=== PATIENT | female | born 1990 | race Caucasian/White ===

== ENCOUNTER 2019-12-17 15:59 | Outpatient (CLI) | payer OTHER, SELFPAY ==
--- NOTE | ~2019-12-17 | US_ITS ---
EXAMINATION: US OB <= 14 weeks fetus DATE: 12/17/2019 16:48 INDICATION: Gestational dating. TECHNIQUE: Real-time transabdominal obstetric ultrasound. FINDINGS: No prior studies for comparison. The uterus measures 11.8 x 8.1 x 6.7 cm. There is an intrauterine gestational sac, with pole id entified. The crown rump length measures 2.33 cm, which correlates with a estimated gestational age of 9 weeks 0 days. heart tones are identified measuring 165 bpm. There is a subchorionic hemo rrhage measuring 2 x 1.7 x 0.9 cm. There is a corpus luteal cyst of the left ovary measuring 3 x 2.8 x 2.6 cm. IMPRESSION: 1. SL IUP with an EGA of 9 weeks, 0 days (EDC by current ultrasound of 07/21/2020). 2: Small subchorionic hemorrhage measuring 2 x 1.7 x 0.9 cm. 3: 3 cm corpus luteal cyst of the left ovary. Reviewed, dictated and finalized at location A. RY DRILLER HELPER IMPRESSION: 1. SL IUP with an EGA of 9 weeks, 0 days (EDC by current ultrasound of 0). 2: Small subchorionic hemorrhage measuring 2 x 1.7 x 0.9 cm. 3: 3 cm corpus luteal cyst of the left ovary.
== END 2019-12-17 16:00 | disposition home or self-care (01) ==
LOC: ANHIMG 16:00
PROVIDERS: Visit Provider Student in an Organized Health Care Education/Training Program
DX: O46.91 Antepartum hemorrhage, unspecified, first trimester (principal); Z3A.09 9 weeks gestation of pregnancy
CPT/HCPCS: 76801

== ENCOUNTER 2020-02-06 10:32 | Outpatient (CLI) | payer OTHER, SELFPAY ==
[2020-02-06 11:16] LABS: Basophils Percent Auto 0.3 % (0.2-1.2); Eosinophils Absolute Auto 0.2 K/mm3 (0-0.3); Eosinophils Percent Auto 1.6 % (0-4.4); Hematocrit 31.5 % (37.0-47.0); Hemoglobin 10.5 g/dL (12.0-15.0); Immature Granulocyte Absolute 0.04 K/mm3 (0.00-0.031); Immature Granulocyte Percent A 0.4 % (0-0.5); Lymphocytes Absolute Auto 1.98 K/mm3 (0.9-3.2); Lymphocytes Percent Auto 20.9 % (18.3-44.2); Mean Corpuscular HGB Conc 33.3 g/dl (32-36); Mean Corpuscular Hemoglobin 28.2 pg (26-34); Mean Corpuscular Volume 84.7 fl (80-100); Mean Platelet Volume 9.9 fl (7.4-10.4); Monocytes Absolute Auto 0.6 K/mm3 (0.1-0.6); Monocytes Percent Auto 6.3 % (2.6-8.5); Neutrophils Absolute Auto 6.7 K/mm3 (1.3-6.7); Neutrophils Percent Auto 70.5 % (45.5-73.1); Platelet Count Result 186 k/mm3 (150-375); Red Blood Count 3.72 M/mm3 (4.2-5.4); Red Cell Distribution Width 14.6 % (11.5-14.5); White Blood Count 9.5 K/mm3 (4.5-10.0)
[2020-02-06 11:30] LABS: Add Urine Microscopic? YES; Appearance Urine Clear (Clear); Bacteria Urine Trace /hpf; Bilirubin Urine Negative (Negative); Blood Urine 1+ (Negative); Color Urine Straw (Yellow); Glucose Urine UA Negative (Negative); Ketones Urine Negative (Negative); Leukocyte Esterase Ur Negative LEU/UL (NEGATIVE); Nitrate Urine Negative (Negative); Protein Urine Negative (Negative); RBC Urine 0-2 /hpf (0-2); Specific Grav Ur 1.011 (1.001-1.035); Squamous Epithelial Cell Urine Occasional /hpf (Few); Urobilinogen Urine Negative mg/dL (<2.0); WBC Urine 0-3 /hpf (0-3)
[2020-02-06 12:02] LABS: Hepatitis B Surface Antigen Negative (Negative); Rubella IgG Antibody 26.4 IU/ML
[2020-02-06 12:14] LABS: HIV 1/2 Ab P24 Ag Result Negative (Negative); Hepatitis C Virus Antibody Negative (Negative)
[2020-02-06 12:20] LABS: Vitamin D 25 Hydroxy 35.4 ng/mL
[2020-02-06 13:13] LABS: HIV 1/2 Ab P24 Ag 0.06; Hepatitis B Surface Antigen 0.04 S/C; Hepatitis C Virus Antibody 0.04 S/C
[2020-02-08 09:26] LABS: Rapid Plasma Reagin Non-Reactive (NonReactive)
[2020-02-09 13:36] LABS: Toxoplasma IgG Antibody <7.20 IU/mL (<7.20)
[2020-02-10 18:43] LABS: Hematocrit 34.6 % (35.0-45.0); Hemoglobin 11.3 g/dL (11.7-15.5); MCH 28.5 pg (27.0-33.0); MCV 87.2 FL (80.0-100.0); RDW 16.4 % (11.0-15.0); Red Blood Cell Count 3.97 Mill/uL (3.80-5.10)
== END 2020-02-06 10:33 | disposition home or self-care (01) ==
PROVIDERS: Visit Provider Student in an Organized Health Care Education/Training Program
DX: Z34.81 Encounter for supervision of other normal pregnancy, first trimester (principal); Z3A.00 Weeks of gestation of pregnancy not specified
CPT/HCPCS: 36415; 81001; 82306; 83021; 84443; 85025; 86592; 86703; 86762; 86777; 86787; 86803; 86900; 86901; 87086; 87088; 87340; G0432

== ENCOUNTER 2020-05-03 15:49 | Outpatient (CLI) | payer OTHER, SELFPAY ==
[2020-05-03 17:26] LABS: Basophils Percent Auto 0.4 % (0.2-1.2); Eosinophils Absolute Auto 0.2 K/mm3 (0-0.3); Eosinophils Percent Auto 1.7 % (0-4.4); Hematocrit 30.9 % (37.0-47.0); Hemoglobin 9.9 g/dL (12.0-15.0); Immature Granulocyte Absolute 0.06 K/mm3 (0.00-0.031); Immature Granulocyte Percent A 0.6 % (0-0.5); Lymphocytes Absolute Auto 2.35 K/mm3 (0.9-3.2); Lymphocytes Percent Auto 24.3 % (18.3-44.2); Mean Corpuscular Hemoglobin 26.3 pg (26-34); Mean Platelet Volume 10.5 fl (7.4-10.4); Monocytes Percent Auto 9.9 % (2.6-8.5); Neutrophils Absolute Auto 6.1 K/mm3 (1.3-6.7); Neutrophils Percent Auto 63.1 % (45.5-73.1); Platelet Count Result 187 k/mm3 (150-375); Red Blood Count 3.77 M/mm3 (4.2-5.4); Red Cell Distribution Width 13.2 % (11.5-14.5); White Blood Count 9.7 K/mm3 (4.5-10.0)
[2020-05-03 17:37] LABS: Glucose 1 Hour PP 50gm Dose 108 mg/dL
== END 2020-05-03 15:50 | disposition home or self-care (01) ==
PROVIDERS: Visit Provider Student in an Organized Health Care Education/Training Program
DX: Z34.82 Encounter for supervision of other normal pregnancy, second trimester (principal); Z3A.00 Weeks of gestation of pregnancy not specified
CPT/HCPCS: 36415; 82947; 85025; 86850; 86900; 86901

== ENCOUNTER 2020-05-29 09:08 | Observation (INO) | payer OTHER, SELFPAY ==
--- NOTE | ~2020-05-29 | US_ITS ---
EXAMINATION: US OB limited EXAM DATE: 05/29/2020 10:52 INDICATION: , vaginal bleeding. Spotting last night. 3rd trimester. TECHNIQUE: Pelvic obstetrical transabdominal sonogram was performed by a technologist. There are mu ltiple grayscale and Doppler images available for interpretation. Comparison is made to prior examina tion from 12/19/2019. FINDINGS: There is a single fetus identified in vertex presentation with a heart rate of 127 beats pe r minute. The placenta is located in the posterior position. There is no sonographic evidence of ret roplacental hemorrhage identified. The amniotic fluid index is 15.0 centimeters, which is normal. IMPRESSION: 1. Single fetus in vertex presentation with heart rate 127 beats per minute. 2. Normal KELLI 15 cm. Reviewed, dictated and finalized at location A.
[2020-05-29 10:26] LABS: Basophils Percent Auto 0.3 % (0.2-1.2); Eosinophils Absolute Auto 0.2 K/mm3 (0-0.3); Eosinophils Percent Auto 1.6 % (0-4.4); Hematocrit 33.3 % (37.0-47.0); Hemoglobin 10.9 g/dL (12.0-15.0); Immature Granulocyte Absolute 0.04 K/mm3 (0.00-0.031); Immature Granulocyte Percent A 0.4 % (0-0.5); Lymphocytes Absolute Auto 1.97 K/mm3 (0.9-3.2); Lymphocytes Percent Auto 21.1 % (18.3-44.2); Mean Corpuscular HGB Conc 32.7 g/dl (32-36); Mean Corpuscular Volume 82.4 fl (80-100); Mean Platelet Volume 10.4 fl (7.4-10.4); Monocytes Absolute Auto 0.8 K/mm3 (0.1-0.6); Neutrophils Absolute Auto 6.4 K/mm3 (1.3-6.7); Neutrophils Percent Auto 68.6 % (45.5-73.1); Platelet Count Result 162 k/mm3 (150-375); Red Blood Count 4.04 M/mm3 (4.2-5.4); Red Cell Distribution Width 17.2 % (11.5-14.5); White Blood Count 9.3 K/mm3 (4.5-10.0)
[2020-05-29 10:28] VITALS: BMI 28.5
--- NOTE | 2020-05-29 10:28 | OBADM ---
This patient, Sonia Davies, admitted to the OB room Labor/Delivery/Recovery 118 for observation. Patient/family oriented to hospital policies and general routines including ID bracelet, bed and alarms, visiting hours, pain management, procedures, bathroom and other care routines, personal items, smoking policy, room service/diet, and visiting hours. Patient/Family are encouraged to report perceived risks to care and to ask questions if they do not understand what they are told or what they should do.
[2020-05-29 10:29] VITALS: BP 108/65; PULSE 76
[2020-05-29 10:31] VITALS: BP 104/63; PULSE 80
[2020-05-29 10:38] LABS: Prothrombin Time 13.2 Seconds (11.1-14.7)
[2020-05-29 10:39] LABS: Partial Thromboplastin Time 29.1 SECONDS (22.3-36.8)
[2020-05-29 10:42] LABS: D Dimer 0.92 ug/mL (<0.48)
[2020-05-29 10:44] LABS: Fibrinogen 308 mg/dl (215-510)
[2020-05-29 10:45] LABS: Fetal Fibronectin Negative
--- NOTE | 2020-06-29 12:39 | P.PNOB_ITS ---
OB - Triage/Final Diagnosis Evaluation Laboratory results: Laboratory Tests 05/29/20 05/29/20 05/29/20 10:13 10:21 10:21 WBC 9.3 RBC 4.04 L Hgb 10.9 L Hct 33.3 L MCV 82.4 MCH 27.0 MCHC 32.7 RDW 17.2 H Plt Count 162 MPV 10.4 Immature Gran % (Auto) 0.4 Neut % (Auto) 68.6 Lymph % (Auto) 21.1 [place] % (Auto) 8.0 Eos % (Auto) 1.6 Baso % (Auto) 0.3 Lymph # (Auto) 1.97 [place] # (Auto) 0.8 H Eos # (Auto) 0.2 Baso # (Auto) 0.0 Abs Immat Gran (auto) 0.04 H Absolute Neuts (auto) 6.4 Absolute Nucleated RBC 0.0 Nucleated RBC % 0.0 PT 13.2 INR 1.0 APTT 29.1 Fibrinogen 308 D-Dimer 0.92 H Fibronectin Negative Final Diagnosis (1) contractions: Code(s): O47.9 - False labor, unspecified Status: Acute
== END 2020-05-29 11:30 | disposition home or self-care (01) ==
PROVIDERS: Admitting Provider Obstetrics & Gynecology; Visit Provider Obstetrics & Gynecology
DX: O47.03 False labor before 37 completed weeks of gestation, third trimester (principal); Z3A.32 32 weeks gestation of pregnancy
CPT/HCPCS: 36415; 76815; 82731; 85025; 85380; 85384; 85610; 85730; G0378; G0379

== ENCOUNTER 2020-06-25 09:28 | Outpatient (RCR) | payer OTHER, SELFPAY ==
[2020-05-28 17:00] VITALS: BP 109/61; PULSE 82
[2020-06-04 16:21] VITALS: BP 109/61; PULSE 111
[2020-06-07 15:42] VITALS: BP 107/60; PULSE 93
[2020-06-11 08:47] VITALS: BP 109/65; PULSE 88
[2020-06-18 09:25] VITALS: BP 112/71; PULSE 87
--- NOTE | 2020-06-18 10:30 | PC.NURSE ---
BPP 06/04.
--- NOTE | ~2020-06-25 | US_ITS ---
EXAMINATION: US OB BPP wo non-stress DATE: 06/11/2020 08:50 INDICATION: Biophysical profile. Third trimester. TECHNIQUE: Real-time pelvic ultrasound was performed. COMPARISON: Ultrasound 05/29/2020, 12/17/2019 FINDINGS: There is a single living fetus in vertex presentation. The placenta is posterior. heart rate i s 133 beats per minute (bpm). Biophysical profile performed by the technologist: breathing (30 sec sustained breathing in 30 minutes): 2 out of 2 movement (3 gross body movements in 30 minutes): 2 out of 2 tone (one episode of rsiugdh-ikexucqwg-mkaiiuz limb movement): 2 out of 2 Amniotic fluid pocket (2 cm): 2 out of 2 Total score: 8 out of 8 IMPRESSION: 1. Single living fetus in vertex presentation. 2. Biophysical profile 8 out of 8. Reviewed, dictated and finalized at location A.
--- NOTE | ~2020-06-25 | US_ITS ---
EXAMINATION: US OB BPP wo non-stress DATE: 06/25/2020 10:38 INDICATION: Large blood vessel on placenta. NST. Third trimester. TECHNIQUE: Real-time pelvic ultrasound was performed. The interpreting radiologist was not present fo r the study. COMPARISON: 06/18/2020 FINDINGS: There is a single living fetus in vertex presentation. The placenta is posterior. heart rate i s 161 beats per minute (bpm). Biophysical profile performed by the technologist: breathing (30 sec sustained breathing in 30 minutes): 2 out of 2 movement (3 gross body movements in 30 minutes): 2 out of 2 tone (one episode of ogrscsw-wcnqirtio-jhyutlk limb movement): 2 out of 2 Amniotic fluid pocket (2 cm): 2 out of 2 Total score: 8 out of 8 IMPRESSION: 1. Single living fetus in vertex presentation with heart rate of 161 bpm. 2. Biophysical profile 8 out of 8. Reviewed, dictated and finalized at location A.
--- NOTE | ~2020-06-25 | US_ITS ---
EXAMINATION: US OB BPP wo non-stress DATE: 06/18/2020 10:21 INDICATION: Irregular blood vessel in cord, third trimester TECHNIQUE: Real-time pelvic ultrasound was performed. The interpreting radiologist was not present fo r the study. COMPARISON: None. FINDINGS: There is a single living fetus in vertex presentation. The placenta is posterior. heart rate is 120 beats per minute (bpm). Biophysical profile performed by the technologist: breathing (30 sec sustained breathing in 30 minutes): 2 out of 2 movement (3 gross body movements in 30 minutes): 2 out of 2 tone (one episode of isjaigu-hvjtfmzvn-lfgpeew limb movement): 2 out of 2 Amniotic fluid pocket (2 cm): 2 out of 2 Total score: 8 out of 8 IMPRESSION: 1. Single living fetus in vertex presentation. 2. Biophysical profile 8 out of 8. Reviewed, dictated and finalized at location A.
[2020-06-25 10:02] LABS: Basophils Percent Auto 0.4 % (0.2-1.2); Eosinophils Absolute Auto 0.2 K/mm3 (0-0.3); Eosinophils Percent Auto 1.5 % (0-4.4); Hematocrit 33.6 % (37.0-47.0); Hemoglobin 10.9 g/dL (12.0-15.0); Immature Granulocyte Absolute 0.09 K/mm3 (0.00-0.031); Immature Granulocyte Percent A 0.9 % (0-0.5); Lymphocytes Absolute Auto 1.77 K/mm3 (0.9-3.2); Lymphocytes Percent Auto 17.3 % (18.3-44.2); Mean Corpuscular HGB Conc 32.4 g/dl (32-36); Mean Corpuscular Hemoglobin 27.4 pg (26-34); Mean Corpuscular Volume 84.4 fl (80-100); Mean Platelet Volume 11.1 fl (7.4-10.4); Monocytes Percent Auto 9.3 % (2.6-8.5); Neutrophils Absolute Auto 7.2 K/mm3 (1.3-6.7); Neutrophils Percent Auto 70.6 % (45.5-73.1); Platelet Count Result 158 k/mm3 (150-375); Red Blood Count 3.98 M/mm3 (4.2-5.4); Red Cell Distribution Width 17.2 % (11.5-14.5); White Blood Count 10.2 K/mm3 (4.5-10.0)
[2020-06-25 10:12] VITALS: BP 113/64; PULSE 94
[2020-06-25 10:57] LABS: HIV 1/2 Ab P24 Ag Result Negative (Negative)
[2020-06-27 11:33] LABS: Rapid Plasma Reagin Non-Reactive (NonReactive)
== END 2020-07-05 07:46 | disposition home or self-care (01) ==
LOC: ANHOBOP 09:28
PROVIDERS: Visit Provider Student in an Organized Health Care Education/Training Program
DX: O36.63X0 Maternal care for excessive fetal growth, third trimester, not applicable or unspecified (principal); Z11.4 Encounter for screening for human immunodeficiency virus [HIV]; Z3A.32 32 weeks gestation of pregnancy; Z3A.33 33 weeks gestation of pregnancy; Z3A.34 34 weeks gestation of pregnancy; Z3A.35 35 weeks gestation of pregnancy; Z3A.36 36 weeks gestation of pregnancy
CPT/HCPCS: 36415; 59025; 76819; 85025; 86592; 86703; G0432

== ENCOUNTER 2020-07-01 04:56 | Inpatient (IN) | payer OTHER, SELFPAY ==
[2020-07-01] VITALS (106 sets, daily range): BP systolic 89–135; BP diastolic 42–112; PULSE 58–124; TEMP 36.4–37.2; O2SAT 93–100; BMI 31.2
--- NOTE | 2020-07-01 05:24 | LDADM ---
This patient, Sonia Davies, was admitted to Labor/Delivery/Recovery 106 on 07/01/20 at 04:56. Plans for labor, pain management and were discussed with patient. Patient/family oriented to hospital policies and general routines including ID bracelet, bed and alarms, visiting hours, pain management, procedures, bathroom and other care routines, personal items, smoking policy, room service/diet and guest tray routines, security routines, and visiting hours. Patient/Family are encouraged to report perceived risks to care and to ask questions if they do not understand what they are told or what they should do. See OBIX for further documentation.
[2020-07-01 05:33] LABS: Basophils Percent Auto 0.2 % (0.2-1.2); Eosinophils Absolute Auto 0.1 K/mm3 (0-0.3); Eosinophils Percent Auto 1.2 % (0-4.4); Hemoglobin 11.4 g/dL (12.0-15.0); Immature Granulocyte Absolute 0.07 K/mm3 (0.00-0.031); Immature Granulocyte Percent A 0.7 % (0-0.5); Lymphocytes Absolute Auto 2.29 K/mm3 (0.9-3.2); Mean Corpuscular HGB Conc 32.6 g/dl (32-36); Mean Corpuscular Hemoglobin 27.5 pg (26-34); Mean Corpuscular Volume 84.5 fl (80-100); Mean Platelet Volume 10.7 fl (7.4-10.4); Monocytes Absolute Auto 0.8 K/mm3 (0.1-0.6); Monocytes Percent Auto 7.6 % (2.6-8.5); Neutrophils Absolute Auto 7.1 K/mm3 (1.3-6.7); Neutrophils Percent Auto 68.3 % (45.5-73.1); Platelet Count Result 157 k/mm3 (150-375); Red Blood Count 4.14 M/mm3 (4.2-5.4); Red Cell Distribution Width 16.9 % (11.5-14.5); White Blood Count 10.4 K/mm3 (4.5-10.0)
[2020-07-01] MEDS: DINOPROSTONE 10 MG VAG INSERT VAGINAL (05:37)
[2020-07-01 07:16] LABS: Rapid Plasma Reagin Non-Reactive (NonReactive)
--- NOTE | 2020-07-01 10:31 | PM.IMHP ---
H&P: HPI History of Present Illness Date/Time: 07/01/20 10:31 Patient is a 30yo LMP 10/15/19 currently 37w gestation. Patient is dated by LMP consistent with an ultrasound on 12/17/19 at 9w gestation. She presents to L&D for scheduled IOL secondary to an umbilical vein varix that was diagnosed at approx. 33w gestation on US. Patient had NIPT done earlier during for a thickened NT that was negative. She has been monitored with serial surveillance and all testing has been within normal limits. Patient reports feeling well today. Denies any vaginal bleeding or leakage of fluid. Reports occasional contractions and good movement. Chief complaint: IOL Narrative: Sonia Davies is a 30 year old female Review of Systems Constitutional: Constitutional: Reports as per HPI and Reports no additional constitutional complaints Eyes: Eyes: Reports as per HPI and Reports no additional eye complaints ENT: Reports system reviewed and no additional complaints, except as documented and Reports as per HPI Cardiovascular: Cardiovascular: Reports as per HPI and Reports no additional cardiovascular complaints Respiratory: Respiratory: Reports as per HPI and Reports no additional respiratory complaints Gastrointestinal: Gastrointestinal: Reports as per HPI, Reports no additional gastrointestinal complaints, Denies abdominal pain, Denies nausea and Denies vomiting Genitourinary: Genitourinary: Reports no additional female genitourinary complaints and Reports as per HPI Musculoskeletal: Musculoskeletal: Reports no additional musculoskeletal complaints and Reports as per HPI Integumentary/Breasts: Skin/Breast: Reports system reviewed and no additional complaints, except as docu and Reports as per HPI Neurologic: Reports system reviewed and no additional complaints, except as documented and Reports as per HPI Psychiatric: Psychiatric: Reports no additional psychiatric complaints and Reports as per HPI PMFSH Past Medical History Medical History Asthma Hearing impaired Hernia Vaginal delivery Surgical History Surgical History History of hernia repair Family History Family History Grandparent Family history of cardiovascular disease Family history of Alzheimer's disease Family history of emphysema Carcinoma of colon Mother Hypertension Sibling Family history of attention deficit hyperactivity disorder (ADHD) Social History Social History Smoking status: Never smoker Alcohol intake: former Substance use: never Gender identity (if verbalized by the patient): Female Sexual Orientation (if Verbalized by the Patient): Straight or Heterosexual Spiritual care concerns: No Meds Home Medications and Allergies Home Medications Medication Instructions Recorded Confirmed Type albuterol sulfate 90 mcg/actuation 1 inhalation INHALATION Q4-6H PRN 12/03/19 History breath activated powder inhaler fluticasone propionate 44 1 inhalation INHALATION ONCE 12/03/19 History mcg/actuation HFA aerosol inhaler vit 123-iron 28 mg-folic 1 cap PO DAILY 12/31/19 History acid 800 bim-bqdir-2e 235 mg capsule gozwxkhfib-obrghspijwxln-zcltwioz 1 cap PO Q8H PRN #10 cap 02/15/20 02/15/20 Rx 50 mg-300 mg-40 mg capsule ferrous sulfate 325 mg (65 mg 325 mg PO DAILY #90 tablet 05/05/20 Rx iron) tablet Allergies Allergy/AdvReac Type Severity Reaction Status Date / Time No Known Allergies Allergy Verified 06/30/20 09:28 Vital Signs Vital Signs - 24 hr 07/01/20 05:30 07/01/20 06:00 07/01/20 06:30 Pulse Rate 122 H 104 H 101 H Blood Pressure 116/71 114/66 115/66 07/01/20 07:00 07/01/20 07:30 Pulse Rate 109 H 97 Blood Pressure 112/75 112/69 Exam Const
--- NOTE | 2020-07-01 12:36 | WPDANESEPP ---
Anes - Eval Pre Procedure Procedure: labor epidural Date/Time: 07/01/20 12:36 Pre Op Diagnosis: IOL Patient Data Age: 30 Gender: F Height: 1.6 m Weight: 80 kg Last Vital Signs Pulse 81 07/01/20 11:51 BP 115/71 07/01/20 11:51 Allergies Allergy/AdvReac Type Severity Reaction Status Date / Time No Known Allergies Allergy Verified 06/30/20 09:28 Home Medications Medication Instructions Recorded Confirmed Type albuterol sulfate 90 mcg/actuation 1 inhalation INHALATION Q4-6H PRN 12/03/19 History breath activated powder inhaler fluticasone propionate 44 1 inhalation INHALATION ONCE 12/03/19 History mcg/actuation HFA aerosol inhaler vit 123-iron 28 mg-folic 1 cap PO DAILY 12/31/19 History acid 800 uer-jmavt-8w 235 mg capsule xlugomrune-ibvtgzowexnol-fnkygwgp 1 cap PO Q8H PRN #10 cap 02/15/20 02/15/20 Rx 50 mg-300 mg-40 mg capsule ferrous sulfate 325 mg (65 mg 325 mg PO DAILY #90 tablet 05/05/20 Rx iron) tablet Laboratory Tests 07/01/20 07/01/20 07/01/20 05:25 05:25 05:25 WBC 10.4 K/mm3 H K/mm3 (4.5-10.0) RBC 4.14 M/mm3 L M/mm3 (4.2-5.4) Hgb 11.4 g/dL L g/dL (12.0-15.0) Hct 35.0 % L % (37.0-47.0) MCV 84.5 fl fl (80-100) MCH 27.5 pg pg (26-34) MCHC 32.6 g/dl g/dl (32-36) RDW 16.9 % H % (11.5-14.5) Plt Count 157 k/mm3 k/mm3 (150-375) MPV 10.7 fl H fl (7.4-10.4) Immature Gran % (Auto) 0.7 % H % (0-0.5) Neut % (Auto) 68.3 % % (45.5-73.1) Lymph % (Auto) 22.0 % % (18.3-44.2) [place] % (Auto) 7.6 % % (2.6-8.5) Eos % (Auto) 1.2 % % (0-4.4) Baso % (Auto) 0.2 % % (0.2-1.2) Lymph # (Auto) 2.29 K/mm3 K/mm3 (0.9-3.2) [place] # (Auto) 0.8 K/mm3 H K/mm3 (0.1-0.6) Eos # (Auto) 0.1 K/mm3 K/mm3 (0-0.3) Baso # (Auto) 0.0 K/mm3 K/mm3 (0.0-0.1) Abs Immat Gran (auto) 0.07 K/mm3 H K/mm3 (0.00-0.031) Absolute Neuts (auto) 7.1 K/mm3 H K/mm3 (1.3-6.7) Absolute Nucleated RBC 0.0 K/mm3 K/mm3 (0.0-0.012) Nucleated RBC % 0.0 % % (0.0-0.2) RPR Non-reactive (NonReactive) Blood Type O Positive Antibody Screen Negative Patient hx anesthesia problems: none Family hx anesthesia problems: none PMFSH Past Medical History Medical History Asthma Hearing impaired Hernia Vaginal delivery Surgical History Surgical History History of hernia repair Family History Family History Grandparent Family history of cardiovascular disease Family history of Alzheimer's disease Family history of emphysema Carcinoma of colon Mother Hypertension Sibling Family history of attention deficit hyperactivity disorder (ADHD) Social History Social History Smoking status: Never smoker Alcohol intake: former Substance use: never Gender identity (if verbalized by the patient): Female Sexual Orientation (if Verbalized by the Patient): Straight or Heterosexual Spiritual care concerns: No Exam Day of Procedure 07/01/20 12:36 Patient weight: obese Heart: regular rate and rhythm Lungs: normal air movement Airway: Mallampati scale class II Neurological: alert and oriented
[2020-07-01] MEDS: LACTATED RINGERS 1,000 ML 125 ML IV CONT ×3 (17:42→19:43)
--- NOTE | 2020-07-01 18:03 | PM.OBPNVD ---
OB - PN: Subj Subjective Date/time seen: 07/01/20 18:03 Pt doing well. Cervidil recently removed. Reports increase in contraction intensity. SVE /-2. AROM performed, clear fluid. EFM Category 1. [place] irregular ctx. Continue IOL. Will begin pitocin. Continuous EFM and toco. May have epidural if requested. OB - PN: Obj Data Labs CBC & Chem 7: 07/01/20 05:25 Labs: Laboratory Results - last 24 hr 07/01/20 07/01/20 07/01/20 05:25 05:25 05:25 WBC 10.4 H RBC 4.14 L Hgb 11.4 L Hct 35.0 L MCV 84.5 MCH 27.5 MCHC 32.6 RDW 16.9 H Plt Count 157 MPV 10.7 H Immature Gran % (Auto) 0.7 H Neut % (Auto) 68.3 Lymph % (Auto) 22.0 [place] % (Auto) 7.6 Eos % (Auto) 1.2 Baso % (Auto) 0.2 Lymph # (Auto) 2.29 [place] # (Auto) 0.8 H Eos # (Auto) 0.1 Baso # (Auto) 0.0 Abs Immat Gran (auto) 0.07 H Absolute Neuts (auto) 7.1 H Absolute Nucleated RBC 0.0 Nucleated RBC % 0.0 RPR Non-reactive Blood Type O Positive Antibody Screen Negative OB - PN A/P Time Spent With Patient Time: Total time spent is greater than 50% in coordination of care (as documented) at patient's floor/unit and/or counseling patient:
[2020-07-01] MEDS: SODIUM CHLORIDE 0.9% IV 300 ML 600 ML I-UTERINE (22:49)
[2020-07-01] MEDS: OXYTOCIN 30 UNITS/NS 500 ML 30 UNITS/500 ML BAG IV CONT (23:20)
[2020-07-02] VITALS (111 sets, daily range): BP systolic 91–125; BP diastolic 46–86; PULSE 56–154; RESP 12–16; TEMP 36.4–36.9; O2SAT 96–100
[2020-07-02] MEDS: LACTATED RINGERS 1,000 ML 125 ML IV CONT (00:12)
[2020-07-02] MEDS: SODIUM CHLORIDE 0.9% IV 1,000 ML 150 ML I-UTERINE (03:25)
--- NOTE | 2020-07-02 06:40 | PM.OBPRVD ---
OB - Delivery Note Procedure Delivery date: 07/02/20 Procedure: Patient is a 30-year-old G2 now P2002 who was admitted to labor and delivery on the morning of 07/01/2020 the at 37 weeks gestation. Patient was admitted to labor and delivery for a scheduled induction of labor secondary to an umbilical vein varix that was noted during ultrasounds. Patient reported feeling well. Cervical exam was fingertip dilated, thick, high. Induction of labor was started with Cervidil. Cervidil remained in place for approximately 11-1/2 hours. When Cervidil was removed, cervical exam was 2-3 cm dilated. Artificial rupture membranes was performed at 5:29 p.m. Clear amniotic fluid was noted. Pitocin was started for labor augmentation. Patient made slow cervical change. Contractions, however, were increasing in frequency and intensity. Patient became uncomfortable an requested an epidural for pain management which was placed without difficulty. An IUPC was placed for enhanced monitoring. An amnioinfusion was started for a few decelerations noted on EFM. Tracing improved. Pitocin was continuously titrated. Patient made cervical change and was found to be fully dilated at 5:40 a.m. Patient was prepped and draped for delivery. Patient was encouraged to push and found to be pushing well. At 6:19 a.m., patient delivered head in direct OA presentation. Infant head was delivered atraumatically without difficulty. Occiput restituted to maternal right side. With subsequent push, the 's neck, shoulders, and rest of body were delivered without difficulty. 's nose and mouth were suctioned with bulb suction. was crying spontaneously. The infant was placed on maternal abdomen and care was assumed by awaiting nursing staff. Delayed cord clamping was performed for 60 seconds. The cord was clamped and cut. A segment of cord was collected for cord gases. Cord blood was also collected. The placenta was delivered spontaneously and intact. Straight catheterization was performed with a minimal amount of clear urine obtained. Uterine fundus was noted to be firm. On inspection, no lacerations were noted. Patient was cleansed and dried. Estimated blood loss for entire delivery is 150 cc. The was a live-born male infant, Apgars 9 and 9, weighing 7 lb 6 oz. Both mother and baby doing well at end of delivery. Induction method: other (cervidil) Delivery augmentation: rupture of membranes and pitocin Delivery monitor: external FHT, external uterine and internal uterine Route of delivery: Laceration description: None Specimen: Yes (placenta and cord, cord blood, and cord gases) Estimated blood loss (mL): 150 Anesthesia type: Epidural Disposition: floor Complications: No immediate complications Baby Date of : 07/02/20 Time of : 06:19 Weeks of gestation at delivery: 37 (37.1) Infant gender: Male Weight (pounds): 7 Weight (ounces): 6 presentation: vertex position: Right Occiput Anterior (direct OA, then rotated to SARAH) Placenta delivery description: Spontaneous cord vessel description: 3 Vessels and Clamped/Cut score one minute: 9 score five minutes: 9
[2020-07-02] MEDS: OXYTOCIN 30 UNITS/NS 500 ML 30 UNITS/500 ML BAG 125 UNITS IV CONT (07:26)
[2020-07-02] MEDS: IBUPROFEN 600 MG TABLET PO (17:37)
[2020-07-03] MEDS: IBUPROFEN 600 MG TABLET PO ×2 (05:05→11:08)
[2020-07-03 05:13] LABS: Hematocrit 32.1 % (37.0-47.0); Hemoglobin 10.3 g/dL (12.0-15.0)
[2020-07-03 08:30] VITALS: BP 113/64; PULSE 103; RESP 16; TEMP 36.2; O2SAT 98
[2020-07-03] MEDS: MULTIVIT/MIN/PREN/FOL AC/IRON TABLET 1 TAB PO (08:30)
--- NOTE | 2020-07-03 09:14 | PC.NURSE ---
Patient was given the opportunity to view the discharge video Mother & Baby Care, The First Two Weeks and to ask questions. Patient declined viewing the video and has been given the mother/baby guide for home reference.
--- NOTE | 2020-07-03 09:54 | P.PNOB_ITS ---
OB - PN: Subj Subjective Date/time seen: 07/03/20 09:54 She is breast and bottle feeding. Ambulating well. Patient comments: pain well controlled, tolerating diet and other (Decreasing lochia.) [place] baby status: doing well and nursing well OB - PN: Obj Data Labs CBC & Chem 7: 07/03/20 04:53 Labs: Laboratory Results - last 24 hr 07/03/20 04:53 Hgb 10.3 L Hct 32.1 L OB - PN A/P Plan day: 1 Plan: routine care Comments: Patient doing well. She desires to go home. Discharge precautions discussed. Time Spent With Patient Time: Total time spent is greater than 50% in coordination of care (as documented) at patient's floor/unit and/or counseling patient: Exam Psych: Affect: normal affect Other: Abd: fundus firm below umbilicus, nontender Perineum: healing Ext: nontender
--- NOTE | 2020-07-03 10:00 | P.DS_ITS ---
DS: Admitting Diagnosis Admitting Diagnosis Admitting Diagnosis: IOL DS: Discharge Diagnosis Discharge Diagnosis (1) Encounter for induction of labor: Code(s): Z34.90 - Encounter for supervision of normal , unspecified, unspecified trimester Status: Acute Assessment and Plan: Intrauterine delivered. OB - DS: Summary OB Procedures : NST OB Procedures Intrapartum: Spontaneous Vag Delivery OB Procedures: : None Time Spent with Patient Time attestation: Total time spent providing and/or coordinating discharge services: Exam Psych: Affect: normal affect Other: Abd: fundus firm below umbilicus, nontender Perineum: healing Ext: nontender DS: Data Data Completed and Pending Pending studies at discharge: Pending at discharge 07/02/20 06:26 Surgical [PTH] Routine Labs on day of discharge: Labs from last 24 hours 07/03/20 04:53 Hgb 10.3 L Hct 32.1 L Discharge Plan Discharge Attending physician on discharge: Elodia Faith Discharging Clinician: Glen Freeman Anticipated Discharge Date/Time: 07/03/20 09:55 Patient Disposition: Home, Self-Care Activity: may shower and pelvic rest Diet: regular Discharge Instructions: Pelvic rest for 4-6 weeks. Call for fever greater than 100.4, saturating more than a pad an hour, leg pain and or redness. May take over the counter Ibuprofen or Tylenol for pain. Take vitamin daily. Take previously prescribed asthma medication as directed. Patient Instructions: Antibiotic Form Stand Alone Forms: General Discharge Information Follow-up/Referrals: Elodia Faith MD [Physician] - 4 Weeks (Call for appointment.) Discharge Medications: Discontinued fefvapamih-gpxmrmgjwojzn-drxc [Fioricet] 50-300-40 mg capsule 1 cap PO Q8H PRN (Reason: pain) Qty: 10 RF: 0 albuterol sulfate 90 mcg/actuation aerosol powdr breath activated 1 inhalation INHALATION Q4-6H PRNRF: 0 Flovent HFA 44 mcg/actuation HFA aerosol inhaler 1 inhalation INHALATION ONCE RF: 0 One-A-Day Women's 1 28 mg iron- 800 mcg-235 mg capsule 1 cap PO DAILY RF: 0 ferrous sulfate 325 mg (65 mg iron) tablet 325 mg PO DAILY Qty: 90 RF: 0 Date of admission: 07/01/20 04:56 Primary Care Provider: PHYSICIAN,MANAGING PARTNER Admitting Provider: Elodia Faith Attending physician on admission: Elodia Faith
--- NOTE | 2020-07-03 10:52 | WPDANLDPN2 ---
Anes-Prog Note L&D Date/Time: 07/03/20 10:52 Comfortable throughout: labor and delivery Epidural/Spinal procedure site: clean & non-tender Neuro status: Neuro function grossly intact. Cardiovascular status: normal Respiratory status: normal Airway patency: baseline Mental status: baseline Post-Op hydration status: normal Vital Signs: Last Vital Signs Temp 36.2 C L 07/03/20 08:30 Pulse 103 H 07/03/20 08:30 Resp 16 07/03/20 08:30 BP 113/64 07/03/20 08:30 Pulse Ox 98 07/03/20 08:30 Post-procedural complaints: none Patient feedback: Patient satisfied with anesthetic care.
[2020-07-03] MEDS: TETANUS,DIPHTHERIA,AC PERTUSSIS ADULT (0.5 ML) BOOSTRIX IM (11:09)
[2020-07-04 07:47] VITALS: BP 110/71; PULSE 87; RESP 16; TEMP 36.6; O2SAT 97
== END 2020-07-03 14:48 | disposition home or self-care (01) | DRG 807 ==
LOC: ANHOB2 07-03 10:00 → ANHLDR 07-05 19:24 → ANHOB2 07-05 19:24
PROVIDERS: Admitting Provider Student in an Organized Health Care Education/Training Program; Visit Provider Obstetrics & Gynecology
DX: O69.89X0 Labor and delivery complicated by other cord complications, not applicable or unspecified (principal); Z37.0 Single live birth; O76 Abnormality in fetal heart rate and rhythm complicating labor and delivery; Z3A.37 37 weeks gestation of pregnancy; Z23 Encounter for immunization
CPT/HCPCS: 36415; 85014; 85018; 85025; 86592; 86850; 86900; 86901; 88307; 90471; 90686; 90715; A9270; G0008; J2590; J2795; J7030; J7120